=== PATIENT | male | born 1935 | race Caucasian/White ===

== ENCOUNTER → 2023-03-26 15:43 | Outpatient (REF) | payer MEDICARE, SELFPAY ==
[2023-03-26 14:18] LABS: Hematocrit 29.4 % (39.0-52.0); Hemoglobin 9.3 g/dL (13.0-18.0); Mean Corp Hgb Conc. 31.6 g/dL (33.0-37.0); Mean Corpuscular Hgb 29.1 pg (27.0-31.0); Mean Corpuscular Volume 91.9 fL (80.0-94.0); Mean Platelet Volume 10.3 fL (7.4-10.4); Platelet Count 119 10^3/uL (130-400); Red Cell Dist. Width 16.3 % (11.5-14.5)
[2023-03-26 15:09] LABS: Iron 62 ug/dl (49-181); LDH 245 U/L (120-246)
[2023-03-26 15:18] LABS: Percent Saturation 21 % (20-50); Total Iron Binding Capacity 291 ug/dl (261-462)
[2023-03-26 17:36] LABS: White Blood Cell Count 29.9 10^3/uL (4.8-10.8)
[2023-03-26 17:37] LABS: Folate > 20.0 ng/ml (2.76-20); Vitamin B12 > 1000 pg/ml (239-931)
[2023-03-26 18:02] LABS: % Basophils 0.3 % (0-2); % Eosinophils 0.3 % (0-6); % Immature Granulocytes 0.4 % (0-0.5); % Lymphocytes 82.3 % (20.5-51.1); % Monocytes 3.4 % (1.7-9.3); % Neutrophils 13.3 % (42.2-75.2); Absolute Basophils 0.1 10^3/uL (0-0.2); Absolute Eosinophils 0.1 10^3/uL (0-0.7); Absolute Immature Granulocytes 0.1 10^3/uL (0-0.05); Absolute Lymphocytes 24.8 10^3/uL (1.2-3.4); Nucleated Red Blood Cells % 0 % (-)
== END ==
LOC: OIDL 15:43
PROVIDERS: ATTENDING PHYSICIAN Internal Medicine Hematology & Oncology
DX: C83.13 Mantle cell lymphoma, intra-abdominal lymph nodes (principal); D51.9 Vitamin B12 deficiency anemia, unspecified
CPT/HCPCS: 82607; 82728; 82746; 83540; 83550; 83615; 85025

== ENCOUNTER → 2023-04-16 09:41 | Outpatient (REF) | payer MEDICARE, SELFPAY ==
[2023-04-16 09:57] LABS: Hematocrit 28.3 % (39.0-52.0); Hemoglobin 8.8 g/dL (13.0-18.0); Mean Corp Hgb Conc. 31.1 g/dL (33.0-37.0); Mean Corpuscular Hgb 29.9 pg (27.0-31.0); Mean Corpuscular Volume 96.3 fL (80.0-94.0); Platelet Count 93 10^3/uL (130-400); Red Blood Cell Count 2.94 10^6/uL (4.70-6.10); Red Cell Dist. Width 17.7 % (11.5-14.5)
[2023-04-16 10:37] LABS: % Basophils 0.1 % (0-2); % Eosinophils 0.1 % (0-6); % Immature Granulocytes 0.3 % (0-0.5); % Lymphocytes 87.4 % (20.5-51.1); % Monocytes 4.1 % (1.7-9.3); Absolute Basophils 0.1 10^3/uL (0-0.2); Absolute Eosinophils 0.1 10^3/uL (0-0.7); Absolute Immature Granulocytes 0.2 10^3/uL (0-0.05); Absolute Lymphocytes 52.1 10^3/uL (1.2-3.4); Absolute Monocytes 2.5 10^3/uL (0.1-0.6); Absolute Neutrophils 4.7 10^3/uL (1.4-6.5); Nucleated Red Blood Cells % 0.2 % (-); White Blood Cell Count 59.6 10^3/uL (4.8-10.8)
== END ==
LOC: OIDL 09:41
PROVIDERS: ATTENDING PHYSICIAN Internal Medicine Hematology & Oncology; FAMILY PHYSICIAN Internal Medicine
DX: C83.18 Mantle cell lymphoma, lymph nodes of multiple sites (principal)
CPT/HCPCS: 36415; 85025

== ENCOUNTER → 2023-04-23 16:25 | Outpatient (REF) | payer MEDICARE, SELFPAY ==
[2023-04-23 17:49] LABS: % Basophils 0.1 % (0-2); % Eosinophils 0.1 % (0-6); % Immature Granulocytes 0.5 % (0-0.5); % Lymphocytes 85.2 % (20.5-51.1); % Monocytes 4.7 % (1.7-9.3); Absolute Eosinophils 0.1 10^3/uL (0-0.7); Absolute Immature Granulocytes 0.4 10^3/uL (0-0.05); Absolute Lymphocytes 61.8 10^3/uL (1.2-3.4); Absolute Monocytes 3.4 10^3/uL (0.1-0.6); Absolute Neutrophils 6.8 10^3/uL (1.4-6.5); Hemoglobin 8.3 g/dL (13.0-18.0); Mean Corp Hgb Conc. 30.7 g/dL (33.0-37.0); Mean Corpuscular Hgb 29.4 pg (27.0-31.0); Mean Corpuscular Volume 95.7 fL (80.0-94.0); Mean Platelet Volume 11.1 fL (7.4-10.4); Nucleated Red Blood Cells % 0.3 % (-); Platelet Count 111 10^3/uL (130-400); Red Blood Cell Count 2.82 10^6/uL (4.70-6.10); Red Cell Dist. Width 18.7 % (11.5-14.5)
[2023-04-23 18:15] LABS: ALT (SGPT) 18 U/L (0-50); AST (SGOT) 32 U/L (17-59); Albumin 4.2 g/dl (3.5-5.0); Alkaline Phosphatase 122 U/L (38-126); Blood Urea Nitrogen 37 mg/dl (9-20); Calcium 9.4 mg/dl (8.4-10.2); Carbon Dioxide 23 mmol/L (22-30); Chloride 101 mmol/L (98-107); Glucose 130 mg/dl (70-99); Potassium 4.5 mmol/L (3.5-5.1); Sodium 136 mmol/L (135-145); Total Bilirubin 1.7 mg/dl (0.2-1.3); Total Protein 9.6 g/dl (6.3-8.2)
[2023-04-23 18:17] LABS: Uric Acid 8.6 mg/dl (3.5-8.5)
[2023-04-23 19:17] LABS: % Neutrophils 9.4 % (42.2-75.2)
[2023-04-23 19:28] LABS: White Blood Cell Count 72.5 10^3/uL (4.8-10.8)
== END ==
LOC: REG 16:25
PROVIDERS: ATTENDING PHYSICIAN Internal Medicine Hematology & Oncology; FAMILY PHYSICIAN Internal Medicine
DX: C83.18 Mantle cell lymphoma, lymph nodes of multiple sites (principal)
CPT/HCPCS: 36415; 80053; 84550; 85025

== ENCOUNTER → 2023-04-26 15:04 | Outpatient (REF) | payer MEDICARE, SELFPAY ==
[2023-04-26 16:34] LABS: % Eosinophils 0.1 % (0-6); % Immature Granulocytes 0.3 % (0-0.5); % Lymphocytes 90.9 % (20.5-51.1); % Monocytes 4.9 % (1.7-9.3); % Neutrophils 3.8 % (42.2-75.2); Absolute Basophils 0.1 10^3/uL (0-0.2); Absolute Eosinophils 0.1 10^3/uL (0-0.7); Absolute Immature Granulocytes 0.5 10^3/uL (0-0.05); Absolute Lymphocytes 138.4 10^3/uL (1.2-3.4); Absolute Monocytes 7.5 10^3/uL (0.1-0.6); Absolute Neutrophils 5.7 10^3/uL (1.4-6.5); Hematocrit 25.1 % (39.0-52.0); Hemoglobin 7.7 g/dL (13.0-18.0); Mean Corp Hgb Conc. 30.7 g/dL (33.0-37.0); Mean Corpuscular Hgb 30.2 pg (27.0-31.0); Mean Corpuscular Volume 98.4 fL (80.0-94.0); Mean Platelet Volume 11.2 fL (7.4-10.4); Nucleated Red Blood Cells % 0.2 % (-); Platelet Count 101 10^3/uL (130-400); Red Blood Cell Count 2.55 10^6/uL (4.70-6.10); Red Cell Dist. Width 18.7 % (11.5-14.5); White Blood Cell Count 152.2 10^3/uL (4.8-10.8)
[2023-04-26 16:58] LABS: ALT (SGPT) 17 U/L (0-50); AST (SGOT) 30 U/L (17-59); Albumin 3.9 g/dl (3.5-5.0); Alkaline Phosphatase 98 U/L (38-126); Blood Urea Nitrogen 37 mg/dl (9-20); Calcium 8.7 mg/dl (8.4-10.2); Carbon Dioxide 25 mmol/L (22-30); Chloride 101 mmol/L (98-107); Glucose 112 mg/dl (70-99); Sodium 137 mmol/L (135-145); Total Bilirubin 1.4 mg/dl (0.2-1.3); Total Protein 9.2 g/dl (6.3-8.2)
[2023-04-26 16:59] LABS: LDH 258 U/L (120-246); Uric Acid 8.1 mg/dl (3.5-8.5)
== END ==
LOC: REG 15:04
PROVIDERS: ATTENDING PHYSICIAN Internal Medicine Hematology & Oncology; FAMILY PHYSICIAN Internal Medicine
DX: C83.18 Mantle cell lymphoma, lymph nodes of multiple sites (principal)
CPT/HCPCS: 36415; 80053; 83615; 84550; 85025

== ENCOUNTER 2023-04-26 17:13 | Emergency (ER) | payer MEDICARE, SELFPAY ==
--- NOTE | 2023-04-26 17:22 | ED.GENMED ---
History of Present Illness
General
Chief Complaint: CODE
Source: ambulance crew
Time Seen by Provider: 04/26/23 17:14
Travel History
Have you had any contact with someone who has COVID-19?: Unable to Answer
Do you have any symptoms of coronavirus? Fever > 100 degrees, chills, cough, shortness of breath, sore throat, loss of taste or smell, muscle aches, or headache?: Unable to Answer
History of Present Illness
History of Present Illness:
87-year-old male brought to the emergency by ambulance after being found in a parked car on the side of the road. Evidently a pizza driver noticed the patient's car pulled over with the patient in the front seat. They drove by the car about 10 minutes
later and noticed it had not moved and the patient was still in the same position the front seat prompting them to call 911. When paramedics arrived they found the patient be unresponsive. He was asystole when placed on the monitor. CPR was
initiated. By the time he arrived to the emergency room the patient had had approximately 5 doses of epinephrine through a interosseous line. He did not have any change in rhythm.
Past History
Past History
ED Past Medical History: Arrthythmia (Atrial fibrillation) and Cancer (Lymphoma)
ED Past Surgical History: None
Social History
Tobacco: Non-smoker
Alcohol: Occasional
Drug: None
Personal:
Living: with family
Phy Exam
Physical Exam
Physical Exam:
CODE EXAM:
VITAL SIGNS: No palpable blood pressure, no pulses, no respiration.
GENERAL EXAM: Mottled
EYES: Pupils fixed
ENT: Patient intubated
NECK: No venous distention
RESPIRATORY: Equal breath sounds with bag valve ventilation
CARDIAC: Absent heart sounds
VASCULAR: Absent pulses
ABDOMEN: Soft no masses
GUAIAC: Not done
MUSCULOSKELETAL: Unable to evaluate strength
EXTREMITIES: No edema or contractures. [facility] identification band noted on wrist
SKIN: No rash, cold to touch
PSYCH: Mood, affect unable to evaluate
Course
Orders/Labs/Results
Orders:
Orders
04/26/23 17:14
EPINEPHrine [Adrenalin 1 mg/10 ml] 1 mg .ROUTE .STK-MED ONE
Vital Signs
Initial and Last Documented VS:
Initial Vital Signs
Pulse
0
04/26/23 18:56
Last Documented Vital Signs
Pulse
0
04/26/23 18:56
MDM/Problems Addressed
MDM/Problems Addressed:
Patient presents to the emergency room in cardiac arrest. Exact downtime unknown. He is quite cool to touch. Patient received 1 round of epinephrine and CPR after arrival here in the emergency room which is in addition to the 5 rounds he received
in the field. There is no change in rhythm and he continued to have asystole on the monitor. Patient pronounced at . Patient noted to have a wrist band from a recent visit here to [place]. When I pulled up the patient's chart I see he
actually had outpatient blood work performed today. He has a WBC count of 152,000. Hemoglobin 7.7. Platelet count of 101. Chemistries show mild prerenal azotemia but nothing else of note.
Discussed patient's presentation with Dr. Mendiola who reviewed the patient's chart and noted that he was in the office earlier today for blood work. She had just left a message on his voicemail that he should come back to the hospital for
emergent chemotherapy. 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
Message sent to Dr. Miller asking her to certify the . I did speak to isabel from Dr. Potter's office and she will pass along the message that the certificate will need to be certified.
I called the phone numbers listed as primary contact, [facility] [phone]. Unfortunately this number is disconnected. No other contact information available. When I speak to his primary care doctor's office I will see if they have any
further contact numbers.
*Critical Care Note
Total Time (30-74mins, 75-104mins- exclusive of procedures): Not Applicable
ED Attending Note
-
Portions of this chart may have been created with voice recognition software.� Occasional wrong word or��sound alike� substitutions may have occurred due to the inherent limitations of voice recognition software.
Discharge Plan
Departure
Patient Disposition:
Date of Disposition: 04/26/23
Time of Disposition: 19:06
Discharge Problem:
Cardiac arrest, Mantle cell lymphoma
Prescriptions:
No Action
cyanocobalamin (vitamin B-12) 1,000 MCG tablet
1,000 mcg PO DAILY
ascorbic acid (vitamin C) [Vitamin C] 500 MG tablet
500 mg PO DAILY
cholecalciferol (vitamin D3) 1,000 UNITS tablet
1,000 units PO DAILY
furosemide 40 MG tablet
40 mg PO BID AT 0800,1600 30 Days Qty: 60 0RF
carvedilol 6.25 MG tablet
6.25 mg PO BID 30 Days Qty: 60 0RF
atorvastatin 20 MG tablet
20 mg PO QPM 30 Days Qty: 30 0RF
spironolactone 12.5 MG tablet
12.5 mg PO DAILY 30 Days Qty: 30 0RF
lisinopril 2.5 MG tablet
2.5 mg PO DAILY 30 Days Qty: 30 0RF
apixaban [Eliquis] 5 MG tablet
5 mg PO BID 30 Days Qty: 60 0RF
Referrals:
UNKNOWN - PT NOT,INTERVIEWE [Family Provider] -
Interventions
Interventions:
*Risk Screen - Suicide Last Done: 04/26/23 18:56
*General Assessment Last Done: 04/26/23 18:56
*Neglect/Abuse Screening Last Done: 04/26/23 18:56
*ED COVID-19 Vaccine History Last Done: 04/26/23 18:56
ED- Cardiac Assessment Last Done: 04/26/23 18:56
ED- Pulmonary Assessment Last Done: 04/26/23 18:56
== END 2023-04-26 20:58 | disposition expired ==
LOC: EMR 17:13
PROVIDERS: EMERGENCY PHYSICIAN Emergency Medicine
DX: I46.9 Cardiac arrest, cause unspecified (principal); C83.10 Mantle cell lymphoma, unspecified site
CPT/HCPCS: 99285